=== PATIENT | female | born 1960 | race Caucasian/White ===

== ENCOUNTER 2020-10-15 18:54 | Inpatient (IN) | payer OTHER ==
[~2020-10-15] VITALS: Ht 160 cm; Wt 64.1 kg
[2020-10-15] MEDS ORDERED: ONDANSETRON 4MG INJ ONE (19:16)
[2020-10-15 19:39] LABS: BASOPHILS % (AUTO) 0.1 % (0.0-5.0); EOSINOPHILS % (AUTO) 0.1 % (0.0-8.0); HEMATOCRIT 35.4 % (36-48); LYMPHOCYTES % (AUTO) 12.9 % (21.0-51.0); MEAN CORPUSCULAR HEMOGLOBIN 30.1 pg (27.0-33.0); MEAN CORPUSCULAR HGB CONC 34.7 g/dL (32.0-36.0); MEAN CORPUSCULAR VOLUME 86.8 fL (79-99); MONOCYTES % (AUTO) 3.7 % (3.0-13.0); NEUTROPHILS % (AUTO) 82.9 % (40.0-77.0); PLATELET COUNT (AUTO) 210 K/uL (130-400); RED BLOOD CELL COUNT(AUTO) 4.08 MIL/uL (4.00-5.50); RED CELL DISTRIBUTION WIDTH 12.4 % (11.0-15.5); WHITE BLOOD COUNT (AUTO) 7.2 K/uL (4.8-10.8)
[2020-10-15 19:44] LABS: APPEARANCE,URINE Clear (CLEAR); BILIRUBIN,URINE Negative (NEGATIVE); COLOR,URINE Yellow (YELLOW); GLUCOSE, URINE (UA) Negative (NEGATIVE); KETONES,URINE Negative (NEGATIVE); LEUKOCYTE ESTERASE ,URINE Trace (NEGATIVE); NITRATE,URINE Negative (NEGATIVE); OCCULT BLOOD,URINE Trace (NEGATIVE); PROTEIN,URINE POS 1+ mg/dL (NEGATIVE)
[2020-10-15 19:54] LABS: CREATININE 0.9 mg/dL (0.5-1.5); INR 0.99 (0.85-1.15); POTASSIUM 3.6 mmol/L (3.5-5.1); PROTHROMBIN TIME 10.8 SEC (9.6-11.6)
[2020-10-15 19:55] LABS: PARTIAL THROMBOPLASTIN TIME 30.2 SEC (26.3-35.5)
[2020-10-15 19:59] LABS: BACTERIA,URINE Few /HPF (None Seen); MUCUS,URINE Few LPF (None Seen); SQUAMOUS EPITHELIAL CELL,UR Moderate /HPF (0-2)
[2020-10-15 19:59] LABS: ALBUMIN 3.2 g/dL (3.5-5.0); BILIRUBIN,TOTAL 0.5 mg/dL (0.2-1.0); TOTAL PROTEIN, SERUM 7.5 g/dL (6.0-8.3)
[2020-10-15 21:48] LABS: ABG BASE EXCESS -2.3 mmol/L (-2.0-3.0); ABG HCO3 20.5 mmol/L (21.0-28.0); ABG OXYGEN SATURATION 94.9 % (95.0-99.0); ABG PCO2 30 mmHg (32-45)
[2020-10-15] MEDS ORDERED: IOHEXOL 350 MG/ML 100ML INFUS..BTL IV ONE (21:51)
[2020-10-16] MEDS ORDERED: NITROGLYCERIN 0.4 MG SL TAB SL PRN (00:45)
[2020-10-16] MEDS: CEFTRIAXONE 1G VIAL IVP SCH ×3 (00:45→23:15)
[2020-10-16] MEDS ORDERED: ACETAMINOPHEN 325 MG TAB PO PRN (00:45)
[2020-10-16] MEDS ORDERED: ONDANSETRON 4MG INJ IV PRN (00:45)
[2020-10-16] MEDS ORDERED: LACTULOSE 20 GM/30 ML UDCUP PO PRN (00:45)
[2020-10-16] MEDS ORDERED: MAG/ALUM/SIMETH 30 ML UDCUP PO PRN (00:45)
[2020-10-16] MEDS ORDERED: MORPHINE 2 MG SYG IV PRN (00:45)
[2020-10-16] MEDS ORDERED: PHARMACY COMMUNICATION**REMDESIVIR ORDER MISC SCH (00:45)
[2020-10-16] MEDS: DOXYCYCLINE 100MG+NS 250ML IV SCH ×3 (00:45→23:15)
[2020-10-16] MEDS ORDERED: ALBUTEROL 0.083% 2.5 MG/3 ML INH IH PRN (00:45)
[2020-10-16] MEDS ORDERED: DIPHENHYDRAMINE HCL 25 MG CAPSULE PO PRN (00:45)
[2020-10-16] MEDS ORDERED: ERGOCALCIFEROL (VITAMIN D2) 50,000 UNIT CAPSULE PO ONE (00:45)
[2020-10-16] MEDS ORDERED: DiphenhydrAMINE HCL 50 MG/ML VIAL IV PRN (00:45)
[2020-10-16] MEDS ORDERED: DEXAMETHASONE SOD PHOSPHATE 4 MG/ML 1ML VIAL IVP SCH (00:45)
[2020-10-16] MEDS ORDERED: CEFTRIAXONE 1G VIAL ONE (01:11)
[2020-10-16] MEDS ORDERED: ERGOCALCIFEROL (VITAMIN D2) 50,000 UNIT CAPSULE ONE (01:11)
[2020-10-16] MEDS ORDERED: DOXYCYCLINE 100MG+NS 250ML 250 ML IV ONE (01:11)
[2020-10-16] MEDS ORDERED: ACETAMINOPHEN WITH CODEINE 1 TAB TAB ONE (01:12)
[2020-10-16] MEDS ORDERED: MORPHINE 2 MG SYG ONE (05:50)
[2020-10-16] MEDS ORDERED: COMPOUND IV REFRIGERATED 1 EACH IVSOLN MISC PRN (07:30)
[2020-10-16] MEDS ORDERED: REMDESIVIR (EUA) 520 200 MG in 0.9% NACL 250ML 250 ML IV SCH (07:30)
[2020-10-16] MEDS ORDERED: ASCORBIC ACID 500 MG TAB ONE (08:03)
[2020-10-16] MEDS ORDERED: ZINC SULFATE 220 CAPSULE ONE (08:04)
[2020-10-16] MEDS ORDERED: THIAMINE HCL 100 MG/ML 2ML VIAL ONE (08:04)
[2020-10-16] MEDS ORDERED: ACETYLCYSTEINE 600 MG CAPSULE ONE (08:04)
[2020-10-16] MEDS ORDERED: ENOXAPARIN SODIUM 40 MG/0.4 ML SYRINGE SQ ONE (08:05)
[2020-10-16] MEDS ORDERED: FAMOTIDINE 20MG VIAL IV ONE (08:05)
[2020-10-16] MEDS: ASCORBIC ACID 500 MG TAB PO SCH ×3 (09:00→20:56)
[2020-10-16] MEDS: ENOXAPARIN SODIUM 40 MG/0.4 ML SYRINGE SQ SCH (09:00)
[2020-10-16] MEDS: ZINC SULFATE 220 CAPSULE PO SCH (09:00)
[2020-10-16] MEDS: THIAMINE HCL 100 MG/ML 2ML VIAL IVP SCH (09:00)
[2020-10-16] MEDS ORDERED: ACETYLCYSTEINE 600 MG CAPSULE PO SCH (09:00)
[2020-10-16] MEDS: FAMOTIDINE 20MG VIAL IV SCH ×2 (09:00→20:55)
[2020-10-16 10:00] VITALS: BP 125/58
[2020-10-16 11:30] VITALS: BP 141/75
[2020-10-16] MEDS: ACETAMINOPHEN 325 MG TAB PO PRN (12:16)
[2020-10-16 15:59] VITALS: BP 124/57
[2020-10-16] MEDS: BARICITINIB (EUA) 2 MG TABLET PO SCH (17:31)
[2020-10-16 20:01] VITALS: BP 139/76
[2020-10-16] MEDS: ACETAMINOPHEN WITH CODEINE 1 TAB TAB PO PRN (20:58)
[2020-10-17] VITALS (7 sets, daily range): BP systolic 114–136; BP diastolic 58–82
[2020-10-17] MEDS: GUAIFENESIN-DM 200/20 MG 10 ML PO PRN ×2 (04:22→20:58)
[2020-10-17 04:40] LABS: BASOPHILS % (AUTO) 0.2 % (0.0-5.0); EOSINOPHILS % (AUTO) 0.4 % (0.0-8.0); HEMATOCRIT 32.7 % (36-48); LYMPHOCYTES % (AUTO) 28.1 % (21.0-51.0); MEAN CORPUSCULAR HEMOGLOBIN 29.4 pg (27.0-33.0); MEAN CORPUSCULAR HGB CONC 33.6 g/dL (32.0-36.0); MEAN CORPUSCULAR VOLUME 87.4 fL (79-99); MONOCYTES % (AUTO) 4.7 % (3.0-13.0); NEUTROPHILS % (AUTO) 66.2 % (40.0-77.0); PLATELET COUNT (AUTO) 221 K/uL (130-400); RED BLOOD CELL COUNT(AUTO) 3.74 MIL/uL (4.00-5.50); RED CELL DISTRIBUTION WIDTH 12.3 % (11.0-15.5); WHITE BLOOD COUNT (AUTO) 5.4 K/uL (4.8-10.8)
[2020-10-17 04:52] LABS: HEMOGLOBIN A1C 5.2 % (4.0-6.0)
[2020-10-17 05:02] LABS: ALBUMIN 2.5 g/dL (3.5-5.0); BILIRUBIN,TOTAL 0.3 mg/dL (0.2-1.0); CREATININE 0.9 mg/dL (0.5-1.5); POTASSIUM 3.3 mmol/L (3.5-5.1); TOTAL PROTEIN, SERUM 6.6 g/dL (6.0-8.3)
[2020-10-17 05:33] LABS: CRP QUANTITATIVE 191.8 mg/L (0.00-9.0)
[2020-10-17] MEDS ORDERED: REMDESIVIR LABS MISC SCH (06:00)
[2020-10-17] MEDS: DEXAMETHASONE SOD PHOSPHATE 4 MG/ML 1ML VIAL IVP SCH (09:06)
[2020-10-17] MEDS: THIAMINE HCL 100 MG/ML 2ML VIAL IVP SCH (09:06)
[2020-10-17] MEDS: POTASSIUM CHLORIDE 10% ELIXIR 20 MEQ/15 ML UDCUP PO SCH (09:07)
[2020-10-17] MEDS: ASCORBIC ACID 500 MG TAB PO SCH ×3 (09:07→20:35)
[2020-10-17] MEDS: FAMOTIDINE 20MG VIAL IV SCH ×2 (09:07→20:35)
[2020-10-17] MEDS: ZINC SULFATE 220 CAPSULE PO SCH (09:07)
[2020-10-17] MEDS: ENOXAPARIN SODIUM 40 MG/0.4 ML SYRINGE SQ SCH (09:08)
[2020-10-17] MEDS: BARICITINIB (EUA) 2 MG TABLET PO SCH (09:26)
[2020-10-17] MEDS: ACETAMINOPHEN WITH CODEINE 1 TAB TAB PO PRN ×2 (09:26→23:56)
[2020-10-17] MEDS ORDERED: AMLO5TAB4 PO (10:40)
[2020-10-17] MEDS ORDERED: ESTR1PAT87 TD (10:42)
[2020-10-17] MEDS ORDERED: PROG100C11 PO (10:43)
[2020-10-17] MEDS ORDERED: ROPI0.5T7 PO (10:44)
[2020-10-17] MEDS: CEFTRIAXONE 1G VIAL IVP SCH (13:24)
[2020-10-17] MEDS: REMDESIVIR (EUA) 520 100 MG in 0.9% NACL 250ML 250 ML IV SCH (13:24)
[2020-10-17] MEDS: DOXYCYCLINE 100MG+NS 250ML IV SCH (13:24)
[2020-10-18 04:00] VITALS: BP 128/52
[2020-10-18 04:32] LABS: BASOPHILS % (AUTO) 0.2 % (0.0-5.0); HEMATOCRIT 32.8 % (36-48); LYMPHOCYTES % (AUTO) 11.1 % (21.0-51.0); MEAN CORPUSCULAR HEMOGLOBIN 29.4 pg (27.0-33.0); MEAN CORPUSCULAR HGB CONC 34.1 g/dL (32.0-36.0); MEAN CORPUSCULAR VOLUME 86.1 fL (79-99); MONOCYTES % (AUTO) 6.4 % (3.0-13.0); NEUTROPHILS % (AUTO) 81.6 % (40.0-77.0); PLATELET COUNT (AUTO) 282 K/uL (130-400); RED BLOOD CELL COUNT(AUTO) 3.81 MIL/uL (4.00-5.50); RED CELL DISTRIBUTION WIDTH 12.2 % (11.0-15.5); WHITE BLOOD COUNT (AUTO) 5.9 K/uL (4.8-10.8)
[2020-10-18 05:11] LABS: ALBUMIN 2.6 g/dL (3.5-5.0); BILIRUBIN,TOTAL 0.3 mg/dL (0.2-1.0); CREATININE 0.5 mg/dL (0.5-1.5); CRP QUANTITATIVE 87.1 mg/L (0.00-9.0); POTASSIUM 3.4 mmol/L (3.5-5.1); TOTAL PROTEIN, SERUM 6.9 g/dL (6.0-8.3)
[2020-10-18 08:00] VITALS: BP 133/68
[2020-10-18] MEDS: DEXAMETHASONE SOD PHOSPHATE 4 MG/ML 1ML VIAL IVP SCH (08:43)
[2020-10-18] MEDS: THIAMINE HCL 100 MG/ML 2ML VIAL IVP SCH (08:43)
[2020-10-18] MEDS: FAMOTIDINE 20MG VIAL IV SCH ×2 (08:51→20:12)
[2020-10-18] MEDS: ASCORBIC ACID 500 MG TAB PO SCH ×3 (08:52→20:13)
[2020-10-18] MEDS: ZINC SULFATE 220 CAPSULE PO SCH (08:52)
[2020-10-18] MEDS: BARICITINIB (EUA) 2 MG TABLET PO SCH (08:52)
[2020-10-18] MEDS: POTASSIUM CHLORIDE 10% ELIXIR 20 MEQ/15 ML UDCUP PO SCH (08:52)
[2020-10-18] MEDS: ENOXAPARIN SODIUM 40 MG/0.4 ML SYRINGE SQ SCH (08:53)
[2020-10-18 12:15] VITALS: BP 128/74
[2020-10-18] MEDS: REMDESIVIR (EUA) 520 100 MG in 0.9% NACL 250ML 250 ML IV SCH (13:17)
[2020-10-18 16:09] VITALS: BP 133/76
[2020-10-18 20:08] VITALS: BP 135/80
[2020-10-18] MEDS: ROPINIROLE HCL 1 MG TABLET PO SCH (21:08)
[2020-10-19 04:13] VITALS: BP 132/67
[2020-10-19 05:03] LABS: BASOPHILS % (AUTO) 0.1 % (0.0-5.0); EOSINOPHILS % (AUTO) 0.2 % (0.0-8.0); HEMATOCRIT 32.7 % (36-48); LYMPHOCYTES % (AUTO) 9.9 % (21.0-51.0); MEAN CORPUSCULAR HEMOGLOBIN 28.9 pg (27.0-33.0); MEAN CORPUSCULAR HGB CONC 34.3 g/dL (32.0-36.0); MEAN CORPUSCULAR VOLUME 84.5 fL (79-99); MONOCYTES % (AUTO) 6.2 % (3.0-13.0); NEUTROPHILS % (AUTO) 82.3 % (40.0-77.0); PLATELET COUNT (AUTO) 346 K/uL (130-400); RED BLOOD CELL COUNT(AUTO) 3.87 MIL/uL (4.00-5.50); RED CELL DISTRIBUTION WIDTH 12.1 % (11.0-15.5)
[2020-10-19 05:36] LABS: ALBUMIN 2.6 g/dL (3.5-5.0); BILIRUBIN,TOTAL 0.3 mg/dL (0.2-1.0); CREATININE 0.8 mg/dL (0.5-1.5); CRP QUANTITATIVE 38.9 mg/L (0.00-9.0); POTASSIUM 3.7 mmol/L (3.5-5.1); TOTAL PROTEIN, SERUM 6.7 g/dL (6.0-8.3)
[2020-10-19 08:00] VITALS: BP 119/63
[2020-10-19] MEDS: BARICITINIB (EUA) 2 MG TABLET PO SCH (08:08)
[2020-10-19] MEDS: ENOXAPARIN SODIUM 40 MG/0.4 ML SYRINGE SQ SCH (08:08)
[2020-10-19] MEDS: AMLODIPINE 5 MG TAB PO SCH (08:08)
[2020-10-19] MEDS: ASCORBIC ACID 500 MG TAB PO SCH ×3 (08:09→20:34)
[2020-10-19] MEDS: ZINC SULFATE 220 CAPSULE PO SCH (08:09)
[2020-10-19] MEDS: FAMOTIDINE 20MG VIAL IV SCH ×2 (08:09→20:34)
[2020-10-19] MEDS: DEXAMETHASONE SOD PHOSPHATE 4 MG/ML 1ML VIAL IVP SCH (08:09)
[2020-10-19] MEDS: THIAMINE HCL 100 MG/ML 2ML VIAL IVP SCH (08:09)
[2020-10-19] MEDS: POTASSIUM CHLORIDE 10% ELIXIR 20 MEQ/15 ML UDCUP PO SCH (08:10)
[2020-10-19] MEDS ORDERED: ROPINIROLE HCL 1 MG TABLET PO SCH (09:00)
[2020-10-19 12:00] VITALS: BP 121/66
[2020-10-19] MEDS: REMDESIVIR (EUA) 520 100 MG in 0.9% NACL 250ML 250 ML IV SCH (13:24)
[2020-10-19 16:00] VITALS: BP 118/62
[2020-10-19] MEDS: ROPINIROLE HCL 1 MG TABLET PO SCH (20:36)
[2020-10-19] MEDS: ACETAMINOPHEN 325 MG TAB PO PRN (20:36)
[2020-10-19 20:52] VITALS: BP 130/74
[2020-10-19 23:55] VITALS: BP 120/55
[2020-10-20 04:34] VITALS: BP 131/59
[2020-10-20 04:57] LABS: BASOPHILS % (AUTO) 0.3 % (0.0-5.0); EOSINOPHILS % (AUTO) 0.3 % (0.0-8.0); HEMATOCRIT 36.7 % (36-48); LYMPHOCYTES % (AUTO) 10.7 % (21.0-51.0); MEAN CORPUSCULAR HEMOGLOBIN 28.8 pg (27.0-33.0); MEAN CORPUSCULAR HGB CONC 33.2 g/dL (32.0-36.0); MEAN CORPUSCULAR VOLUME 86.8 fL (79-99); MONOCYTES % (AUTO) 5.9 % (3.0-13.0); NEUTROPHILS % (AUTO) 79.4 % (40.0-77.0); PLATELET COUNT (AUTO) 451 K/uL (130-400); RED BLOOD CELL COUNT(AUTO) 4.23 MIL/uL (4.00-5.50); WHITE BLOOD COUNT (AUTO) 10.9 K/uL (4.8-10.8)
[2020-10-20] MEDS: BARICITINIB (EUA) 2 MG TABLET PO SCH (11:05)
[2020-10-20] MEDS: AMLODIPINE 5 MG TAB PO SCH ×2 (11:05→11:15)
[2020-10-20] MEDS: ZINC SULFATE 220 CAPSULE PO SCH (11:05)
[2020-10-20] MEDS: POTASSIUM CHLORIDE 10% ELIXIR 20 MEQ/15 ML UDCUP PO SCH (11:06)
[2020-10-20] MEDS: DEXAMETHASONE SOD PHOSPHATE 4 MG/ML 1ML VIAL IVP SCH (11:09)
[2020-10-20] MEDS: THIAMINE HCL 100 MG/ML 2ML VIAL IVP SCH (11:10)
[2020-10-20] MEDS: ENOXAPARIN SODIUM 40 MG/0.4 ML SYRINGE SQ SCH (11:11)
[2020-10-20] MEDS: FAMOTIDINE 20MG VIAL IV SCH (11:14)
[2020-10-20] MEDS: ASCORBIC ACID 500 MG TAB PO SCH ×2 (11:14→14:07)
[2020-10-20 11:15] VITALS: BP 104/54
[2020-10-20 13:28] LABS: ALBUMIN 2.9 g/dL (3.5-5.0); BILIRUBIN,DIRECT 0.1 mg/dL (0.0-0.3); TOTAL PROTEIN, SERUM 7.3 g/dL (6.0-8.3)
[2020-10-20 13:31] LABS: BILIRUBIN,TOTAL 0.4 mg/dL (0.2-1.0)
[2020-10-20] MEDS ORDERED: APIX5TAB PO (13:34)
[2020-10-20] MEDS: REMDESIVIR (EUA) 520 100 MG in 0.9% NACL 250ML 250 ML IV SCH (14:11)
== END 2020-10-20 16:55 | disposition home or self-care (01) | DRG 177 ==
LOC: EDH 18:54 → EDHIP 10-16 00:32 → 2AH 10-16 09:35
PROVIDERS: ADMIT Family Medicine; ATTEND Family Medicine
PROC: XW033E5 Introduction of Remdesivir Anti-infective into Peripheral Vein, Percutaneous Approach, New Technology Group 5 (ICD-10-PCS; principal; 2020-10-16)
PROC: XW13325 Transfusion of Convalescent Plasma (Nonautologous) into Peripheral Vein, Percutaneous Approach, New Technology Group 5 (ICD-10-PCS; 2020-10-16)
DX: U07.1 COVID-19 (principal); J96.01 Acute respiratory failure with hypoxia; J12.82 Pneumonia due to coronavirus disease 2019; I10 Essential (primary) hypertension; G25.81 Restless legs syndrome; Z79.01 Long term (current) use of anticoagulants
CPT/HCPCS: 36415; 71045; 71275; 80053; 80076; 81001; 82550; 82728; 82803; 82948; 83036; 83605; 83615; 83735; 83880; 84145; 84484; 85025; 85378; 85610; 85730; 86140; 86900; 86901; 86927; 87040; 87426; 87804; 93005; 94760; G0378; J0696; J1100; J1650; J2405; J3411; J3490; J7050; Q9967